=== PATIENT | male | born 1975 | race African-American/Black ===

== ENCOUNTER 2018-01-24 15:32 | Emergency (ER) | payer BC ==
[~2018-01-24] VITALS: Ht 175.3 cm; Wt 118.0 kg
[~2018-01-24 15:32] MED LIST: ATIVAN0.5 MG PO; CRESTOR10 MG OR; LORTAB5 PO; LOTREL1 CA4 OR; NAPROSYN500 MG PO; PRAVACHOL10 MG PO; PROCHLORPER25 MG RE
[2018-01-24 16:24] LABS: HEMATOCRIT 45.1 % (39.0-50.0); HEMOGLOBIN 14.6 g/dl (14.0-18.0); IMMATURE GRANULOCYTES 0.3 % (0.0-5.0); MEAN CELL VOLUME 81.4 fL CALC (80.0-100.0); MEAN CORPUSCULAR HGB 26.4 pG CALC (26.0-32.0); MEAN CORPUSCULAR HGB CONC 32.4 g/L CALC (32.0-36.0); NEUT# 3.79 thou/uL (1.82-7.42); RED BLOOD COUNT 5.54 mill/uL (4.70-6.10); RED CELL DISTRI WIDTH 14.9 % (11.5-15.5)
[2018-01-24 16:41] LABS: PROTHROMBIN TIME 10.3 SECONDS (9.0-12.5)
[2018-01-24 16:42] LABS: ALBUMIN 4.4 g/dL (3.2-5.0); ALKALINE PHOSPHATASE 103 u/l (38-126); ANION GAP 13 (6-22 (CALC)); BILIRUBIN, TOTAL 0.4 mg/dL (0.0-1.4); BUN 14 mg/dL (9-20); BUN/CREATININE RATIO 11 (12-20 (CALC)); CARBON DIOXIDE 23 mmol/l (22-30); CHLORIDE 108 mmol/l (95-108); CREATININE 1.3 mg/dL (0.7-1.3); GFR 60 ML/MIN (>=60 (CALC)); GFR FOR AFR.AMER. > 60 ML/MIN (>=60 (CALC)); POTASSIUM 3.9 mmol/l (3.5-5.1); SGOT/AST 32 u/l (17-59); SODIUM 140 mmol/l (137-146); TOTAL PROTEIN 7.6 g/dL (6.3-8.2)
[2018-01-24 16:55] LABS: INFLUENZA A NONE DETECTED (NONE DETECT); INFLUENZA B NONE DETECTED (NONE DETECT)
[2018-01-24 17:40] VITALS: BP 179/131
[2018-01-24] MEDS ORDERED: CLARITIN10 M1 PO (18:10)
[2018-01-24] MEDS ORDERED: CEPHALEXIN500 M1 PO (18:13)
== END 2018-01-24 18:29 | disposition home or self-care (01) | DRG 204 ==
LOC: ED 15:32
PROVIDERS: Emergency Medicine
DX: R04.2 Hemoptysis (principal); J32.9 Chronic sinusitis, unspecified; I10 Essential (primary) hypertension
CPT/HCPCS: Q9967

== ENCOUNTER 2018-03-31 22:10 | Emergency (ER) | payer BC ==
[~2018-03-31] VITALS: Ht 175.3 cm; Wt 115.5 kg
[~2018-03-31 22:10] MED LIST changes: +CEPHALEXIN500 M1 PO; +CLARITIN10 M1 PO
[2018-03-31 22:49] LABS: HEMATOCRIT 48.9 % (39.0-50.0); IMMATURE GRANULOCYTES 0.3 % (0.0-5.0); MEAN CELL VOLUME 80.7 fL CALC (80.0-100.0); MEAN CORPUSCULAR HGB 26.4 pG CALC (26.0-32.0); MEAN CORPUSCULAR HGB CONC 32.7 g/L CALC (32.0-36.0); NEUT# 4.64 thou/uL (1.82-7.42); RED BLOOD COUNT 6.06 mill/uL (4.70-6.10); RED CELL DISTRI WIDTH 14.1 % (11.5-15.5)
[2018-03-31 23:06] LABS: ALBUMIN 4.6 g/dL (3.2-5.0); ALKALINE PHOSPHATASE 108 u/l (38-126); ANION GAP 14 (6-22 (CALC)); BILIRUBIN, TOTAL 0.3 mg/dL (0.0-1.4); BUN 13 mg/dL (9-20); BUN/CREATININE RATIO 15 (12-20 (CALC)); CARBON DIOXIDE 25 mmol/l (22-30); CHLORIDE 105 mmol/l (95-108); CREATININE 0.8 mg/dL (0.7-1.3); GFR > 60 ML/MIN (>=60 (CALC)); GFR FOR AFR.AMER. > 60 ML/MIN (>=60 (CALC)); POTASSIUM 3.7 mmol/l (3.5-5.1); SGOT/AST 24 u/l (17-59); SODIUM 141 mmol/l (137-146)
[2018-03-31 23:53] VITALS: BP 152/100
== END 2018-03-31 23:50 | disposition home or self-care (01) | DRG 305 ==
LOC: ED 22:10
PROVIDERS: Emergency Medicine
DX: I10 Essential (primary) hypertension (principal); F17.210 Nicotine dependence, cigarettes, uncomplicated; Z94.7 Corneal transplant status

== ENCOUNTER 2018-12-14 21:01 | Emergency (ER) | payer BC ==
[~2018-12-14] VITALS: Ht 175.3 cm; Wt 108.0 kg
[2018-12-14] MEDS ORDERED: BENAZEPRIL10 M1 PO (21:59)
[2018-12-14] MEDS ORDERED: BL ASPIRIN325 MG PO (22:00)
[2018-12-14 22:06] LABS: URINE BILIRUBIN - DIPSTICK NEGATIVE (NEGATIVE); URINE BLOOD DIPSTICK TRACE-INTACT (NEGATIVE); URINE COLOR YELLOW; URINE GLUCOSE - DIPSTICK NEGATIVE (NEGATIVE); URINE KETONE NEGATIVE (NEGATIVE); URINE LEUK ESTERASE NEGATIVE (NEGATIVE); URINE NITRITE - DIPSTICK NEGATIVE (Negative); URINE PROTEIN - DIPSTICK NEGATIVE (NEG-TRACE); URINE UROBILINOGEN - DIPSTICK 0.2 E.U./dL (0.2)
[2018-12-14 22:08] LABS: HEMATOCRIT 48.6 % (39.0-50.0); HEMOGLOBIN 15.9 g/dl (14.0-18.0); IMMATURE GRANULOCYTES 0.3 % (0.0-5.0); MEAN CELL VOLUME 82.8 fL CALC (80.0-100.0); MEAN CORPUSCULAR HGB 27.1 pG CALC (26.0-32.0); MEAN CORPUSCULAR HGB CONC 32.7 g/L CALC (32.0-36.0); NEUT# 3.46 thou/uL (1.82-7.42); RED BLOOD COUNT 5.87 mill/uL (4.70-6.10); RED CELL DISTRI WIDTH 14.1 % (11.5-15.5)
[2018-12-14 22:24] LABS: ALBUMIN 4.6 g/dL (3.2-5.0); ALKALINE PHOSPHATASE 112 u/l (38-126); ANION GAP 14 (6-22 (CALC)); BUN 9 mg/dL (9-20); BUN/CREATININE RATIO 11 (12-20 (CALC)); CARBON DIOXIDE 26 mmol/l (22-30); CHLORIDE 103 mmol/l (95-108); CREATININE 0.8 mg/dL (0.7-1.3); GFR > 60 ML/MIN (>=60 (CALC)); GFR FOR AFR.AMER. > 60 ML/MIN (>=60 (CALC)); POTASSIUM 3.8 mmol/l (3.5-5.1); SGOT/AST 42 u/l (17-59); SODIUM 139 mmol/l (137-146); TOTAL PROTEIN 8.3 g/dL (6.3-8.2)
[2018-12-14 22:26] LABS: BILIRUBIN, TOTAL 0.5 mg/dL (0.0-1.4)
[2018-12-14 22:35] LABS: MYOGLOBIN 49 ng/mL (0 - 121)
[2018-12-14] MEDS ORDERED: TOPROL XL50 MG PO (23:10)
[2018-12-14 23:16] VITALS: BP 119/86
== END 2018-12-14 23:16 | disposition home or self-care (01) | DRG 305 ==
LOC: ED 21:01
PROVIDERS: Family Medicine
DX: I10 Essential (primary) hypertension (principal); F17.200 Nicotine dependence, unspecified, uncomplicated

== ENCOUNTER 2019-01-29 16:14 | Emergency (ER) | payer BC ==
[~2019-01-29] VITALS: Ht 175.3 cm; Wt 103.0 kg
[~2019-01-29 16:14] MED LIST changes: +BENAZEPRIL10 M1 PO; +BL ASPIRIN325 MG PO; +TOPROL XL50 MG PO
[2019-01-29 17:30] VITALS: BP 158/93
[2019-01-29] MEDS ORDERED: CODEINE/GUAIFEN1 SOL PO (17:40)
[2019-01-29] MEDS ORDERED: TAM75CAP PO (17:40)
== END 2019-01-29 17:30 | disposition home or self-care (01) | DRG 153 ==
LOC: ED 16:14
DX: J11.1 Influenza due to unidentified influenza virus with other respiratory manifestations (principal); J06.9 Acute upper respiratory infection, unspecified